=== PATIENT | male | born 1950 | race Caucasian/White ===

== ENCOUNTER 2020-05-31 07:40 | Day surgery (SDC) | payer MEDICARE, OTHER ==
[2020-05-30 09:50] VITALS: BMI 23.8
--- NOTE | 2020-05-31 09:18 | HP ---
Admitting History and Physical - Admission Chief Complaint: right inguinal bulge History of Present Illness: 70 y .o. male with right inguino-scrotal bulge History Source: Patient - Smoking History Smoking history: Never smoked Home Medications - Allergies Allergies/Adverse Reactions: Allergies Allergy/AdvReac Type Severity Reaction Status Date / Time No Known Allergies Allergy Verified 05/31/20 08:18 - Home Medications Home Medications: Ambulatory Orders Hydrochlorothiazide [Hctz -] 25 mg PO HS 05/30/20 Losartan Potassium 100 mg PO HS 05/30/20 Review of Systems - Review of Systems Constitutional: reports: No Symptoms HENT: reports: No Symptoms Neck: reports: No Symptoms Cardiovascular: reports: No Symptoms Respiratory: reports: No Symptoms Gastrointestinal: reports: No Symptoms Genitourinary: reports: No Symptoms Breasts: reports: No Symptoms Reported Musculoskeletal: reports: No Symptoms Physical Examination Vital Signs: Vital Signs Temperature 97.8 F 05/31/20 08:11 Pulse Rate 67 05/31/20 08:11 Respiratory Rate 18 05/31/20 08:11 Blood Pressure 140/100 05/31/20 08:11 O2 Sat by Pulse Oximetry (%) 98 05/31/20 08:12 Constitutional: Yes: Well Nourished Eyes: Yes: Conjunctiva Clear HENT: Yes: Normocephalic Neck: Yes: Supple Cardiovascular: Yes: Regular Rate and Rhythm Respiratory: Yes: CTA Bilaterally Gastrointestinal: Yes: Soft, Hernia (reducible right inguino-scrotal hernia) ...Rectal Exam: Yes: Deferred Problem List - Problems (1) Right inguinal hernia Assessment/Plan: robotic RIH repair with mesh risks, benefits, and alternatives d/w patient Code(s): K40.90 - UNIL INGUINAL HERNIA, W/O OBST OR GANGR, NOT SPCF RECUR
[2020-05-31] MEDS ORDERED: MIDAZOLAM HCL 2 MG/2 ML SINGLE DOSE VIAL ONE ×2 (09:19)
[2020-05-31] MEDS ORDERED: fentaNYL CITRATE 250 MCG/5 ML VIAL ONE (09:50)
[2020-05-31] MEDS ORDERED: ceFAZolin SODIUM 1 GM VIAL IVPB ONE (10:01)
[2020-05-31] MEDS ORDERED: BUPIVACAINE HCL/PF 0.5% (5 MG/ML) 30 ML VIAL IJ ONE (10:13)
[2020-05-31] MEDS ORDERED: ONDANSETRON 4 MG/2 ML VIAL IVPUSH PRN (11:25)
[2020-05-31] MEDS ORDERED: oxyCODONE HCL 5 MG TABLET PO PRN (11:25)
[2020-05-31] MEDS ORDERED: LACTATED RINGERS SOLUTION 1,000 ML IV SCH (11:30)
[2020-05-31] MEDS ORDERED: GLYCOPYRROLATE 0.2 MG/1 ML VIAL ONE (11:55)
[2020-05-31] MEDS ORDERED: NEOSTIGMINE METHYLSULFATE 0.5 MG/ML - 10 ML MDV ONE (11:55)
[2020-05-31] MEDS ORDERED: EPHEDRINE SULFATE/0.9% NACL/PF 50 MG/10 ML SYRINGE NR ONE (12:02)
[2020-05-31] MEDS ORDERED: ROCURONIUM BROMIDE 50 MG/5 ML SYRINGE ONE (12:02)
--- NOTE | 2020-05-31 12:35 | OP ---
Operative Note - Note: Operative Date: 05/31/20 Pre-Operative Diagnosis: RIH Operation: Robotic RIH repair with mesh Findings: large inguino-scrotal hernia Post-Operative Diagnosis: Same as Pre-op Surgeon: Samson Page Mortgage Or Loan Underwriter: Artur Wiseman Anesthesia: General Estimated Blood Loss (mls): 3 Operative Report Dictated: Yes
[2020-05-31 14:50] VITALS: BP 132/81; PULSE 78; TEMP 97
--- NOTE | 2020-05-31 14:58 | SURG ---
Surgery Fur Stylist Note Fur Stylist: Artur Wiseman PA-C Date of Service: 05/31/20 Diagnosis: Right inguinal hernia Procedure: Robotic repair Right inguinal hernia I was present for the entirety of the operative procedure. For further detail, please refer to operative report. Visit type - Case Type Case Type: Scheduled - Emergency Emergency Visit: No - New patient This patient is new to me today: Yes Date on this admission: 05/31/20 - Critical Care Critical Care patient: No
--- NOTE | 2020-05-31 20:53 | OP ---
DATE OF OPERATION: 05/31/2020 PROCEDURE: Robotic-assisted laparoscopic right inguinal hernia repair with mesh. PREOPERATIVE DIAGNOSIS: Right inguinal scrotal hernia with obstruction. POSTOPERATIVE DIAGNOSIS: Right inguinal scrotal hernia with obstruction. SURGEON: Samson Page MD. BULK DRIVER: SONA Colunga. ANESTHESIA: General endotracheal anesthesia. FINDINGS ON PROCEDURE: This is a 70-year-old male presents with a large right inguinal scrotal hernia with partially reducible, which patient was advised repair by robotic assisted laparoscopy. Consent was obtained after discussion of the risks, benefits, and alternatives to the procedure. DESCRIPTION OF PROCEDURE: Patient was brought to the operating room and placed in supine position. General endotracheal anesthesia was administered. The abdomen was prepped and draped in the usual sterile fashion. Using 0.5% Marcaine local anesthesia was administered to both incision sites. The peritoneal cavity was entered using Veress needle technique via an 8-mm supraumbilical incision. Pneumoperitoneum was established. This was followed by insertion of an 8-mm port. The 3-D laparoscope was inserted, and the peritoneal cavity was carefully inspected and was noted to be free of inadvertent injury. The patient was then placed in Trendelenburg position. Two 8-mm ports were also inserted under direct vision 8 cm away on each side of the midline. The target organ was set, and the robotic arms were docked. A fenestrated bipolar forceps was inserted at the left sided port, and the endowrist heidi connected to monopolar cautery was inserted at the right- sided port. The undersigned then scrubbed out to commence the console part of the procedure. The peritoneum was incised using EndoWrist heidi at the level of the anterior superior iliac spine, and extended medially towards the median umbilical ligament. This was done to create a preperitoneal pocket. Dissection was carried out with blunt and sharp dissection using the epigastric vessels as the landmark, taking care to keep the inferior epigastric vessels at the posterior abdominal wall. This dissection was carried medially toward the underside of the symphysis pubis and laterally toward the anterior superior iliac spine. The large hernia sac was identified and was carefully dissected free from the spermatic cord vessels and the vas deferens. Due to its large size, the hernia sac was transected as distal as possible, leaving the distal sac open. Further dissection inferiorly for about 8 cm away from the large attenuated internal ring was done. When this was completed, a ProGrip inguinal hernia mesh was deployed to cover the internal ring, the inguinal floor, as well as the femoral canal. After the repair was deemed satisfactory, the peritoneal pocket was closed with continuos V-Loc 2-0 absorbable sutures. The transected proximal sac was also closed with the [id number] V-Loc 2-0 absorbable suture. After the procedure was deemed satisfactory, the pneumoperitoneum was evacuated, the robotic arms were undocked, and the ports were removed. The wounds were closed with subcuticular Biosyn 4-0 sutures reinforced with Dermabond. The patient was successfully extubated and transferred to the postanesthesia care unit in satisfactory condition. Estimated blood loss was about 3 mL. Wound class clean. Patient received 1 g of Ancef prior to the start of the procedure. Nik [id number] [id number]
== END 2020-05-31 14:55 | disposition home or self-care (01) ==
LOC: JASU-SURG 07:40
PROVIDERS: ATTEND Surgery
PROC: 8E0W4CZ Robotic Assisted Procedure of Trunk Region, Percutaneous Endoscopic Approach (ICD-10-PCS; 2020-05-31)
PROC: 0YU54JZ Supplement Right Inguinal Region with Synthetic Substitute, Percutaneous Endoscopic Approach (ICD-10-PCS; principal; 2020-05-31 09:30)
DX: K40.30 Unilateral inguinal hernia, with obstruction, without gangrene, not specified as recurrent (principal)
CPT/HCPCS: 49650; S2900; 94760